=== PATIENT | male | born 1960 | race American Indian/Alaskan Native ===

== ENCOUNTER 2016-09-22 04:40 | Emergency (ER) | payer MEDICAID, OTHER ==
[2016-09-22 04:41] VITALS: BMI 28.5
--- NOTE | 2016-09-22 04:59 | C.PDOC ---
History Of Present Illness Patient gave a hixtory of left sided chest pain which staretedabout 30min. before coming to the hospital.No history of sweatiness or SOB. Time Seen by Provider: 09/22/16 04:55 Chief Complaint (Nursing): Chest Pain History Per: Patient History/Exam Limitations: no limitations Onset/Duration Of Symptoms: Hrs Current Symptoms Are (Timing): Still Present Severity: Moderate Quality: Aching, "Pain" Associated Symptoms: denies: Nausea, Dyspnea, Diaphoresis, Syncope Modifying Factors: None Exacerbating Factors: None Alleviating Factors: None Recent travel outside of the [place]: No Additional History Per: Patient Past Medical History Vital Signs: Last Vital Signs Temp 98.1 F 09/22/16 04:56 Pulse 63 09/22/16 04:56 Resp 20 09/22/16 04:56 BP 130/84 09/22/16 04:56 Pulse Ox 99 09/22/16 04:56 - Medical History PMH: Anemia, Asthma, CHF, COPD, Diabetes (diet controlled), HTN, Pulmonary Embolism, Seizures, Sleep Apnea, TIA Denies: Depression Surgical History: Cholecystectomy, Tonsillectomy - [facility] Procedures INJECT/INFUSE NEC (09/04/13) Family History: States: CAD - Social History Hx Tobacco Use: No Hx Alcohol Use: No Hx Substance Use: No - Immunization History Hx Tetanus Toxoid Vaccination: No Hx Influenza Vaccination: No Hx Pneumococcal Vaccination: Yes Review Of Systems Constitutional: Negative for: Fever, Chills, Sweats Cardiovascular: Positive for: Chest Pain. Negative for: Palpitations, Orthopnea , Paroxysmal Noc. Dyspnea, Edema, Light Headedness Respiratory: Negative for: Cough, Shortness of Breath, Hemoptysis Gastrointestinal: Negative for: Nausea, Vomiting, Abdominal Pain, Diarrhea Genitourinary: Negative for: Dysuria Musculoskeletal: Negative for: Shoulder Pain, Arm Pain Skin: Negative for: Rash, Lesions Neurological: Negative for: Weakness, Numbness, Incoordination, Change in Speech , Confusion, Seizures Psych: Negative for: Anxiety Physical Exam - Physical Exam Appears: No Acute Distress Skin: Normal Color, Warm, Dry Head: Atraumatic Nose: Normal Tongue: Normal Appearing Lips: Normal Appearing Throat: Normal Neck: Normal Chest: Symmetrical, No Deformity, No Tenderness, No Ecchymosis, No Subcutaneous Emphysema Cardiovascular: Rhythm Regular, No Edema, No Murmur, No JVD Respiratory: Normal Breath Sounds Gastrointestinal/Abdominal: Normal Exam ED Course And Treatment ECG: Interpreted By Me, Viewed By Me ECG Rhythm: Sinus Rhythm ECG Interpretation: Normal, No Acute Changes Interpretation Of ECG: NSR, no acute changes, normal tracings. Rate From EC Progress Note: Patient refused to take nitroglycerine. States his doctor told him not to take it because of passing out episode. Disposition - Disposition Disposition: AGAINST MEDICAL ADVICE Disposition Time: 06:20 Condition: STABLE - POA Present On Arrival: None - Clinical Impression Clinical Impression: Chest pain
[2016-09-22 05:00] VITALS: BP 130/84; PULSE 63; RESP 20; TEMP 98.1; O2SAT 99
[2016-09-22] MEDS ORDERED: Sodium Chloride 0.9% 1,000 ML IV ONE (05:03)
[2016-09-22 06:33] LABS: ARTERIAL BLOOD HGB O2 SAT 95.7 % (95.0-98.0); CARBOXYHEMOGLOBIN 2.1 % (0.5-1.5); DRAW SITE LB; HHB 1.2 % (0.0-5.0)
--- NOTE | 2016-09-22 09:32 | RAD ---
HISTORY: chest pain COMPARISON: 10/13/2014 TECHNIQUE: Chest PA and lateral FINDINGS: LUNGS: Hyperinflation suggestive for COPD and or emphysematous changes. Patchy increased markings at the left lung base suggestive for infiltrate and or atelectasis with trace effusion. PLEURA: As above. CARDIOVASCULAR: Calcification at the aortic knob. OSSEOUS STRUCTURES: Scoliotic curvature of the spine. Degenerative changes in the spine and shoulders. VISUALIZED UPPER ABDOMEN: Surgical randi over upper abdomen anteriorly. OTHER FINDINGS: None. IMPRESSION: Hyperinflation suggestive for COPD and or emphysematous changes. Patchy increased markings at the left lung base suggestive for infiltrate and or atelectasis with trace effusion.
--- NOTE | 2016-09-22 20:00 | CARD ---
APPROVED REPORT EKG Measurement Heart [id number] <Conclusion> Normal sinus rhythm Normal ECG
== END 2016-09-22 07:08 | disposition left against medical advice (07) ==
LOC: C.ER 04:40
DX: R07.89 Other chest pain (principal)

== ENCOUNTER 2017-05-15 21:43 | Emergency (ER) | payer SELFPAY ==
[2017-05-15 21:43] VITALS: BMI 28.5
[2017-05-15 22:02] VITALS: TEMP 97.8; O2SAT 99
[2017-05-16] MEDS ORDERED: Aspirin 325 mg EC Tablets PO STA (01:12)
--- NOTE | 2017-05-16 01:12 | C.PDOC ---
History Of Present Illness Patient presents to the ER after he was riding the train and had a syncopal episode. Patient states he felt chest discomfort at the time, he notes having a Hx of PE and seizures, does not appear post ictal at this time. Denies fever, chills, nausea, or vomiting. Time Seen by Provider: 05/15/17 23:15 Chief Complaint (Nursing): Dizziness/Lightheaded History Per: Patient History/Exam Limitations: no limitations Onset/Duration Of Symptoms: Hrs Current Symptoms Are (Timing): Still Present Severity: Moderate Pain Scale Rating Of: 4 Recent travel outside of the [place]: No Past Medical History Reviewed: Historical Data, Nursing Documentation, Vital Signs Vital Signs: Last Vital Signs Temp 97.8 F 05/15/17 21:57 Pulse 86 05/16/17 01:40 Resp 18 05/16/17 01:40 BP 130/76 05/16/17 01:40 Pulse Ox 99 05/16/17 01:44 - Medical History PMH: Anemia, Asthma, CHF, COPD, Diabetes (diet controlled), HTN, Pulmonary Embolism, Seizures, Sleep Apnea, TIA Surgical History: Cholecystectomy, Tonsillectomy - [facility] Procedures INJECT/INFUSE NEC (09/04/13) Family History: States: CAD - Social History Hx Tobacco Use: No Hx Alcohol Use: No Hx Substance Use: No - Immunization History Hx Tetanus Toxoid Vaccination: No Hx Influenza Vaccination: No Hx Pneumococcal Vaccination: Yes Review Of Systems Constitutional: Negative for: Fever, Chills Gastrointestinal: Negative for: Nausea, Vomiting Neurological: Positive for: Other (Syncope) Physical Exam - Physical Exam Appears: Non-toxic, Other (Awake, Alert, Does not appear post ictal) Skin: Warm, Dry Head: Normacephalic Oral Mucosa: Moist Chest: Symmetrical, No Tenderness Cardiovascular: Rhythm Regular Respiratory: No Rales, No Rhonchi, No Wheezing Gastrointestinal/Abdominal: Soft, No Tenderness Neurological/Psych: Oriented x3 ED Course And Treatment ECG: Interpreted By Me, Viewed By Me ECG Rhythm: Sinus Rhythm (62), Nonspecific Changes O2 Sat by Pulse Oximetry: 99 Pulse Ox Interpretation: Normal (+) Progress Note: CT head, EKG, blood work, CXR, and urinalysis ordered. Aspirin administered. Pt refuses any blood work. Understands all the risks that I've explained at length, including ,but pt insists on leaving. Encouraged to return Against Medical Advice - AMA Patient Left Against Medical Advice: The patient declines admission to the hospital and wishes to leave the Emergency Department. This action is against my medical advice. This decision was made with informed refusal. The patient was told that admission to the hospital is necessary. Explanation of the reasons why were discussed. The risks of leaving were explained to the patient and include, but are not limited to, worsening of known or currently unknown conditions, permanent disability and from undiagnosed or untreated conditions. The patient has the capacity to make this informed decision and understands my explanation of the current medical problem and risks of leaving. The patient voluntarily accepts these risks and signed an AMA form documenting our conversation. The patient was given the opportunity to ask questions and reconsider. The patient was encouraged to return to the Emergency Department at any time for further care. Disposition Counseled Patient/Family Regarding: Studies Performed, Diagnosis, Need For Followup - Disposition Referrals: [facility] at [facility] [Outside] Disposition: AGAINST MEDICAL ADVICE Disposition Time: 01:12 Condition: FAIR Instructions: Syncope (DC), Chest Pain (DC) Forms: [employer] (K[place]) - Clinical Impression Clinical Impression: Syncope, Chest pain - Scribe Statement The provider has reviewed the documentation as recorded by the Scribe Rubén Jovel All medical record entries made by the Tajibe were at my direction and personally dictated by me. I have reviewed the chart and agree that the record accurately reflects my personal performance of the history, physical exam, medical decision making, and the department course for this patient. I have also personally directed, reviewed, and agree with the discharge instructions and disposition.
[2017-05-16] MEDS ORDERED: Aspirin 325 mg EC Tablets PO ONE (01:21)
[2017-05-16 01:40] VITALS: BP 130/76; PULSE 86; RESP 18
--- NOTE | 2017-05-16 02:04 | CT ---
EXAM: CT Head Without Intravenous Contrast CLINICAL HISTORY: 56 years old, male; Pain; Headache; Additional info: Syncope TECHNIQUE: Axial computed tomography images of the head/brain without intravenous contrast. All CT scans at this facility use one or more dose reduction techniques, viz.: automated exposure control; ma/kV adjustment per patient size (including targeted exams where dose is matched to indication; i.e. head); or iterative reconstruction technique. Coronal and sagittal reformatted images were created and reviewed. COMPARISON: No relevant prior studies available. FINDINGS: Brain: Minimal atrophy. No intracranial hemorrhage. No mass. No definite edema. Ventricles: No hydrocephalus. Bones/joints: No acute fracture. Soft tissues: Unremarkable. Vasculature: Mild atherosclerotic disease of intracranial arteries. Sinuses: No acute sinusitis. Mastoid air cells: No mastoid effusion. Orbits: Unremarkable as visualized. IMPRESSION: 1. No definite acute intracranial abnormality. 2. Incidental/non-acute findings are described above.
--- NOTE | 2017-05-16 08:17 | RAD ---
PROCEDURE: CHEST RADIOGRAPH, 1 VIEW HISTORY: chest pain COMPARISON: Comparison chest 09/22/2017 FINDINGS: LUNGS: Suspect minor left basilar atelectasis PLEURA: No pneumothorax or pleural fluid seen. CARDIOVASCULAR: Heart appears enlarged. OSSEOUS STRUCTURES: No significant abnormalities. VISUALIZED UPPER ABDOMEN: Re- demonstrated are multiple of wire sutures overlying the mid abdomen OTHER FINDINGS: None. IMPRESSION: Suspect minor left basilar atelectasis. Cardiomegaly.
--- NOTE | 2017-05-17 12:29 | CARD ---
APPROVED REPORT EKG Measurement Heart [id number] <Conclusion> Normal sinus rhythm Normal ECG
== END 2017-05-16 02:31 | disposition left against medical advice (07) ==
LOC: C.ER 21:43
DX: R55 Syncope and collapse (principal); R07.9 Chest pain, unspecified

== ENCOUNTER 2018-08-22 03:46 | Emergency (ER) | payer BC, MEDICAID, OTHER ==
[2018-08-22 03:46] VITALS: BMI 28.5
[2018-08-22 04:01] VITALS: BP 165/86; RESP 18; TEMP 97.7; O2SAT 97
[2018-08-22 04:24] VITALS: PULSE 82
--- NOTE | 2018-08-22 05:29 | C.PDOC ---
History Of Present Illness 58 year old male brought in via EMS [place]. In the ER, patient is complaining of mid chest pain radiating to the left. Denies SOB, nausea, or vomiting. Time Seen by Provider: 08/22/18 04:23 Chief Complaint (Nursing): Chest Pain History Per: Patient History/Exam Limitations: no limitations Onset/Duration Of Symptoms: Hrs Current Symptoms Are (Timing): Still Present Associated Symptoms: denies: Nausea, Dyspnea Exacerbating Factors: None Alleviating Factors: None Recent travel outside of the [place]: No Past Medical History Reviewed: Historical Data, Nursing Documentation, Vital Signs Vital Signs: Last Vital Signs Temp 97.7 F 08/22/18 03:55 Pulse 82 08/22/18 04:23 Resp 18 08/22/18 03:55 BP 165/86 H 08/22/18 03:55 Pulse Ox 97 08/22/18 03:55 Primary Care Provider: Non [facility] Provider, - Medical History PMH: Anemia, Asthma, CAD, CHF, COPD, Diabetes (diet controlled), HTN, Pulmonary Embolism, Seizures, Sleep Apnea, TIA Denies: Depression, Chronic Kidney Disease Surgical History: Cholecystectomy, Tonsillectomy - [facility] Procedures INJECT/INFUSE NEC (09/04/13) Family History: States: CAD - Social History Hx Tobacco Use: No Hx Alcohol Use: No Hx Substance Use: No - Immunization History Hx Tetanus Toxoid Vaccination: No Hx Influenza Vaccination: Yes Hx Pneumococcal Vaccination: Yes Review Of Systems Constitutional: Negative for: Fever Cardiovascular: Positive for: Chest Pain Respiratory: Negative for: Shortness of Breath Gastrointestinal: Negative for: Nausea, Vomiting Skin: Negative for: Rash Physical Exam - Physical Exam Appears: Well, Non-toxic, No Acute Distress, Other (Sleeping comfortably) Skin: Normal Color, Warm Head: Atraumatic, Normacephalic Eye(s): bilateral: Normal Inspection Chest: Symmetrical, No Tenderness Cardiovascular: Rhythm Regular Respiratory: Normal Breath Sounds, No Rales, No Rhonchi, No Wheezing Extremity: Normal ROM (x4) Neurological/Psych: Oriented x3, Normal Speech ED Course And Treatment O2 Sat by Pulse Oximetry: 97 (Room air) Pulse Ox Interpretation: Normal Progress Note: Patient states he does not want anything done, only wants morphine for the pain. Prior records reviewed, patient was seen earlier today at [facility] for same complaint, had EKG and CXR done but refused labs and left AMA. Patient offered NSAIDs, tylenol, and tramadol here for pain but refused, patient also refused blood work, eloped from the ER. 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 - Scribe Statement The provider has reviewed the documentation as recorded by the Scribtrisha Jovel All medical record entries made by the Tajibtrisha were at my direction and personally dictated by me. I have reviewed the chart and agree that the record accurately reflects my personal performance of the history, physical exam, medical decision making, and the department course for this patient. I have also personally directed, reviewed, and agree with the discharge instructions and disposition.
--- NOTE | 2018-08-26 10:05 | CARD ---
APPROVED REPORT Date of service: 08/22/2018 EKG Measurement Heart [id number] [id number] <Conclusion> Normal sinus rhythm with sinus arrhythmia Normal ECG
== END 2018-08-22 05:10 | disposition left against medical advice (07) ==
LOC: C.ER 03:46
DX: R07.9 Chest pain, unspecified (principal)